=== PATIENT | male | born 2000 | race Asian ===

== ENCOUNTER 2018-06-09 20:38 | Emergency (ER) | END 2018-06-09 22:19 | disposition home or self-care (01) ==

== ENCOUNTER → 2019-05-14 | Outpatient (CLI) | payer BC | END | disposition home or self-care (01) | LOC: LAB 10:13 | PROVIDERS: ATTEND Internal Medicine | DX: Z01.84 Encounter for antibody response examination (principal) | CPT/HCPCS: 86480; 86706; 86787 ==